=== PATIENT | female | born 1980 | race African-American/Black ===

== ENCOUNTER 2024-06-26 08:49 | Emergency (ER) | payer OTHER, MEDICAID ==
[~2024-06-26] VITALS: Ht 154.9 cm; Wt 70.0 kg
[2024-06-26 08:52] VITALS: O2SAT 99
[2024-06-26 09:37] LABS: CHLORIDE 109 mEq/L (98-107); POTASSIUM 4.4 mEq/L (3.5-5.1); SODIUM 140 mEq/L (136-145)
[2024-06-26 09:38] LABS: CALCIUM 9.7 mg/dL (8.7-10.4); CARBON DIOXIDE 25 mEq/L (21-32)
[2024-06-26 09:43] LABS: BASOPHILS % 0.1 % (0.0-2.0); CREATININE 0.7 mg/dL (0.6-1.0); DIFFERENTIAL COMMENT 0; EOSINOPHILS % 0.1 % (0.0-5.0); GLUCOSE 148 mg/dL (70-105); HEMATOCRIT. 35.9 % (36.0-48.0); HEMOGLOBIN. 11.3 g/dL (12.0-16.0); LYMPHOCYTES % 15.4 % (20.0-50.0); MEAN CORPUSCULAR HEMOGLOBIN 23.8 pg (28.0-32.0); MEAN CORPUSCULAR HGB CONC 31.4 g/dL (31.0-37.0); MEAN CORPUSCULAR VOLUME 75.6 fL (81.0-99.0); MEAN PLATELET VOLUME 8.9 fl (7.4-10.4); MONOCYTES % 4.6 % (2.0-8.0); NEUTROPHILS % 79.8 % (40.0-76.0); PLATELET 203 x1000/uL (130-400); RED BLOOD CELL COUNT 4.74 mill/uL (4.2-5.4); RED CELL DISTRIBUTION WIDTH 20.6 % (11.6-14.6); UREA NITROGEN BLOOD 15 mg/dL (9-23); WHITE BLOOD COUNT 6.1 x1000/uL (4.5-11.0)
[2024-06-26 09:44] LABS: TROPONIN I HIGH SENSITIVITY 6 ng/L (3.0-34)
[2024-06-26 09:45] LABS: ALANINE AMINOTRANSFERASE 50 IU/L (10-49); ALBUMIN 3.9 g/dL (3.2-4.8); ASPARTATE AMINOTRANSFERASE 27 IU/L (<34); BILIRUBIN TOTAL 0.3 mg/dL (0.1-1.0); PROTEIN TOTAL 6.9 g/dL (6.0-8.3)
[2024-06-26 09:47] LABS: T4 FREE 5.14 ng/dL (0.89-1.76); THYROID STIMULATING HORMONE < 0.10 uIU/mL (0.55-4.78)
[2024-06-26] MEDS: ONDANSETRON 4MG ODT PO STA (09:50)
[2024-06-26 09:53] LABS: BILIRUBIN DIRECT < 0.1 mg/dL (<=3.0); ETHANOL BLOOD < 10 mg/dL (<10)
[2024-06-26] MEDS: PROPYLTHIOURACIL 50MG TABLET PO SCH (10:40)
[2024-06-26 11:57] VITALS: TEMP 37.11408
[2024-06-26] MEDS: SODIUM CHLORIDE 0.9% 1,000 ML IV ONE (13:18)
[2024-06-26 14:45] VITALS: BP 121/67; PULSE 123; RESP 19; O2SAT 99
== END 2024-06-26 15:07 | disposition short-term general hospital (02) ==
LOC: ER 08:49
DX: E05.91 Thyrotoxicosis, unspecified with thyrotoxic crisis or storm (principal); I10 Essential (primary) hypertension; R11.10 Vomiting, unspecified
CPT/HCPCS: 80076; 80048; 80320; 84439; 83735; 84443; 85025; 84484; 87804 ×2; 36415; 71045; 93005; 99285; Q0162; J7030; G0480